=== PATIENT | female | born 1970 | race Caucasian/White ===

== ENCOUNTER 2023-07-11 07:30 | Outpatient (RCR) | payer OTHER, SELFPAY | END 2023-07-11 09:59 | disposition home or self-care (01) | PROVIDERS: PCP Family Medicine; Visit Provider Family Medicine | DX: M17.12 Unilateral primary osteoarthritis, left knee (principal); M25.562 Pain in left knee; G89.29 Other chronic pain; Z51.89 Encounter for other specified aftercare | CPT/HCPCS: 97110; 97140; 97161 ==